=== PATIENT | male | born 1980 | race Caucasian/White ===

== ENCOUNTER 2018-03-16 02:14 | Outpatient (CLI) | payer MEDICAID | END 2018-03-16 02:15 | disposition critical access hospital (66) | LOC: EMS 02:14 | PROVIDERS: ATTEND Surgery | DX: R46.89 Other symptoms and signs involving appearance and behavior (principal); R45.1 Restlessness and agitation | CPT/HCPCS: A0425; A0429; A0999 ==

== ENCOUNTER 2018-03-16 02:29 | Emergency (ER) | payer MEDICAID ==
--- NOTE | 2018-03-16 03:44 | ED Physician Documentation ---
PD HPI MHE - Stated complaint Stated Complaint: AMS - Chief complaint Chief Complaint: MHE - History obtained from History obtained from: Patient, EMS - History of Present Illness Primary symptom: Medical clearance Timing - onset: How many weeks ago (1) Contributing factors: Other (homeless) Similar symptoms before: Has not had sx before Recently seen: Not recently seen - Additional information Additional information: 37-year-old homeless male has been observed in [place] by police over the past week to become more delusional and acting more bizarre. 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 Police felt this was a danger to himself and detained him to the emergency department. The patient refused treatment in the field and required restraint to a gurney for transport to the hospital. He has not been charged with a crime. The patient is not cooperative with exam and is in restraint in the ED for further evaluation. Review of Systems Unable to obtain: Uncooperative PD PAST MEDICAL HISTORY - Past Medical History Cardiovascular: None Respiratory: None Endocrine/Autoimmune: None GI: None : None HEENT: None Psych: Depression, Anxiety Musculoskeletal: None Derm: None - Past Surgical History Past Surgical History: No - Present Medications Home Medications: Ambulatory Orders Medication Instructions Recorded Confirmed Potassium Bicarbonate 25 meq PO DAILY #20 tablet 10/05/14 [K-Effervescent] - Allergies Allergies/Adverse Reactions: Allergies Allergy/AdvReac Type Severity Reaction Status Date / Time No Known Drug Allergies Allergy Verified 10/04/14 20:44 - Social History Does the pt smoke?: Yes Smoking Status: Current every day smoker Does the pt drink ETOH?: Yes Does the pt have substance abuse?: No - Immunizations Immunizations are current?: No - POLST Patient has POLST: No PD ED PE NORMAL - Vitals Vital signs reviewed: Yes (hypertensive mild ) - General General: No acute distress, Well developed/nourished, Other (dishoveled male who is uncooperative and restrained. 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 ) Results - Vitals Vitals: Oxygen O2 Source Room air - Labs Labs: Laboratory Tests 03/16/18 03/16/18 03/16/18 03:39 03:39 10:38 WBC 8.7 RBC 4.75 Hgb 14.5 Hct 43.0 MCV 90.7 MCH 30.6 MCHC 33.7 RDW 13.2 Plt Count 271 MPV 8.5 Neut # (Auto) 6.1 Lymph # (Auto) 1.5 [place] # (Auto) 1.1 H Eos # (Auto) 0.0 Baso # (Auto) 0.0 Absolute Nucleated RBC 0.00 Nucleated RBC % 0.0 Sodium 142 Potassium 4.2 Chloride 110 Carbon Dioxide 24 Anion Gap 8.0 BUN 16 Creatinine 1.0 Estimated GFR (MDRD) 84 L Glucose 100 Calcium 9.2 Total Bilirubin 0.5 AST 69 H ALT 60 Alkaline Phosphatase 46 Total Protein 6.3 L Albumin 3.9 Globulin 2.4 Albumin/Globulin Ratio 1.6 Lipase 35 TSH 1.26 Urine Color Urine Clarity Urine pH Ur Specific [place] Urine Protein Urine Glucose (UA) Urine Ketones Urine Occult Blood Urine Nitrite Urine Bilirubin Urine Urobilinogen Ur Leukocyte Esterase Urine RBC Urine WBC Ur Squamous Epith Cells Urine Bacteria Ur Microscopic Review Urine Culture Comments Urine Opiates Screen Ur Oxycodone Screen Urine Methadone Screen Ur Propoxyphene Screen Ur Barbiturates Screen Ur Tricyclics Screen Ur Phencyclidine Scrn Ur Amphetamine Screen U Methamphetamines Scrn U Benzodiazepines Scrn Urine Cocaine Screen U Cannabinoids Screen Ethyl Alcohol < 5.0 03/16/18 10:53 WBC RBC Hgb Hct MCV MCH MCHC RDW Plt Count MPV Neut # (Auto) Lymph # (Auto) [place] # (Auto) Eos # (Auto) Baso # (Auto) Absolute Nucleated RBC Nucleated RBC % Sodium Potassium Chloride Carbon Dioxide Anion Gap BUN Creatinine Estimated GFR (MDRD) Glucose Calcium Total Bilirubin AST ALT Alkaline Phosphatase Total Protein Albumin Globulin Albumin/Globulin Ratio Lipase TSH Urine Color YELLOW Urine Clarity SL. CLOUDY Urine pH 7.5 Ur Specific [place] 1.015 Urine Protein NEGATIVE Urine Glucose (UA) NEGATIVE Urine Ketones NEGATIVE Urine Occult Blood NEGATIVE Urine Nitrite NEGATIVE Urine Bilirubin NEGATIVE Urine Urobilinogen 1 (NORMAL) Ur Leukocyte Esterase NEGATIVE Urine RBC 0-5 Urine WBC 0-3 Ur Squamous Epith Cells NONE SEEN Urine Bacteria Few Ur Microscopic Review INDICATED Urine Culture Comments NOT INDICATED Urine Opiates Screen NEGATIVE Ur Oxycodone Screen NEGATIVE Urine Methadone Screen NEGATIVE Ur Propoxyphene Screen NEGATIVE Ur Barbiturates Screen NEGATIVE Ur Tricyclics Screen NEGATIVE Ur Phencyclidine Scrn NEGATIVE Ur Amphetamine Screen NEGATIVE U Methamphetamines Scrn NEGATIVE U Benzodiazepines Scrn NEGATIVE Urine Cocaine Screen NEGATIVE U Cannabinoids Screen POSITIVE H Ethyl Alcohol PD MEDICAL DECISION MAKING - ED course Complexity details: reviewed old records, reviewed results, re-evaluated patient , considered differential, d/w patient ED course: 37 y/o male with delusional behavior increasing over the past week observed by law enforcement is now a danger to self and he is uncooperative. He is detained for evaluation by DCR. He is evaluated and arrangements are made for transfer to [place]. - Sepsis Event Vital Signs: Oxygen O2 Source Room air Departure - Departure Disposition: [facility] Psych Hosp/Unit DC/Xfer Clinical Impression: Acute psychosis Condition: Stable Discharge Date/Time: 03/16/18 17:15
[2018-03-16 04:04] LABS: ALBUMIN 3.9 g/dL (3.2-5.5); ALBUMIN/GLOBULIN RATIO 1.6 (1.0-2.2); ALKALINE PHOSPHATASE 46 IU/L (42-121); ALT ALANINE AMINOTRANSFERASE 60 IU/L (10-60); AST ASPARTATE AMINOTRANSFERASE 69 IU/L (10-42); BILIRUBIN,TOTAL 0.5 mg/dL (0.2-1.0); BUN - BLOOD UREA NITROGEN 16 mg/dL (6-20); CALCIUM 9.2 mg/dL (8.5-10.3); CARBON DIOXIDE - CO2 24 mmol/L (21-32); CHLORIDE 110 mmol/L (101-111); GFR - MDRD 84 (>89); GLUCOSE 100 mg/dL (70-100); LIPASE 35 U/L (22-51); SODIUM 142 mmol/L (135-145); TOTAL PROTEIN 6.3 g/dL (6.7-8.2)
[2018-03-16] MEDS ORDERED: OLANZapine ODT 5 MG TABLET TL ONE (09:56)
[2018-03-16] MEDS ORDERED: KETAMINE 500 MG/10 ML VIAL IM STA (10:18)
[2018-03-16] MEDS ORDERED: OLANZapine 10 MG VIAL IM STA ×2 (10:19→14:19)
[2018-03-16 10:42] LABS: BASOPHILS % (AUTO) 0.5 %; EOSINOPHILS % (AUTO) 0.4 %; HGB - HEMOGLOBIN 14.5 g/dL (14.0-18.0); LYMPHOCYTES # (AUTO) 1.5 10^3/uL (1.5-3.5); LYMPHOCYTES % (AUTO) 17.4 %; MEAN CORPUSCULAR HEMOGLOBIN 30.6 pg (27.0-31.0); MEAN CORPUSCULAR HGB CONC 33.7 g/dL (32.0-36.0); MEAN CORPUSCULAR VOLUME 90.7 fL (80.0-94.0); MEAN PLATELET VOLUME 8.5 fL (7.4-11.4); MONOCYTES # (AUTO) 1.1 10^3/uL (0.0-1.0); MONOCYTES % (AUTO) 12.2 %; NEUTROPHILS # (AUTO) 6.1 10^3/uL (1.5-6.6); NEUTROPHILS % (AUTO) 69.5 %; PLT - PLATELET COUNT 271 10^3/uL (130-450); RED BLOOD COUNT 4.75 10^6/uL (4.70-6.10); RED CELL DISTRIBUTION WIDTH 13.2 % (12.0-15.0); WHITE BLOOD COUNT 8.7 x10^3/uL (4.8-10.8)
[2018-03-16 11:05] LABS: MUDS CUTOFF CONCENTRATIONS CUTOFF CONC BELOW:
[2018-03-16 11:08] LABS: BILIRUBIN,URINE NEGATIVE (NEGATIVE); GLUCOSE, URINE (UA) NEGATIVE (NEGATIVE); KETONES,URINE (UA) NEGATIVE (NEGATIVE); LEUKOCYTE ESTERASE, URINE NEGATIVE (NEGATIVE); NITRITE,URINE NEGATIVE (NEGATIVE); OCCULT BLOOD,URINE NEGATIVE (NEGATIVE); PH,URINE 7.5 PH (5.0-7.5); PROTEIN,URINE NEGATIVE (NEGATIVE); UROBILINOGEN,URINE 1 (NORMAL) E.U./dL (NORMAL)
[2018-03-16 11:09] LABS: CLARITY,URINE SL. CLOUDY (CLEAR)
[2018-03-16 11:17] LABS: AMPHETAMINE SCREEN,URINE NEGATIVE (NEGATIVE); BENZODIAZEPINES SCREEN, URINE NEGATIVE (NEGATIVE); COCAINE SCREEN URINE NEGATIVE (NEGATIVE); METHADONE SCREEN, URINE NEGATIVE (NEGATIVE); METHAMPHETAMINES SCREEN, URINE NEGATIVE (NEGATIVE); OPIATE SCREEN, URINE NEGATIVE (NEGATIVE); OXYCODONE SCREEN, URINE NEGATIVE (NEGATIVE); PROPOXYPHENE SCREEN, URINE NEGATIVE (NEGATIVE); TRICYCLIC ANTIDEPRESSANT,URINE NEGATIVE (NEGATIVE)
[2018-03-16 11:32] LABS: BACTERIA,URINE Few /HPF (None Seen); RBC,URINE 0-5 /HPF (0-5); SQUAMOUS EPITHELIAL CELL,UR NONE SEEN (<= Few)
[2018-03-16] MEDS ORDERED: WATER FOR INJECTION,STERILE 10 ML ONE (14:41)
[2018-03-16 17:00] VITALS: BP 115/74
== END 2018-03-16 17:15 ==
LOC: EDUNIT# → ED 02:29 → SUPCPDRO 02:29 → ED 17:15
DX: F23 Brief psychotic disorder (principal); F17.200 Nicotine dependence, unspecified, uncomplicated
CPT/HCPCS: 36415; 80053; 80306; 80320; 81001; 81003; 83690; 84443; 85025; 87086; 96372; 99284; 99285

== ENCOUNTER 2018-05-26 22:24 | Outpatient (CLI) | payer MEDICAID | END 2018-05-26 22:25 | disposition critical access hospital (66) | LOC: EMS 22:24 | PROVIDERS: ATTEND Surgery | DX: R46.89 Other symptoms and signs involving appearance and behavior (principal); R41.82 Altered mental status, unspecified | CPT/HCPCS: A0425; A0429; A0999 ==

== ENCOUNTER 2018-05-26 22:38 | Emergency (ER) | payer MEDICAID ==
[2018-05-26] MEDS ORDERED: OLANZapine 10 MG VIAL IM STA (22:43)
[2018-05-26] MEDS ORDERED: WATER FOR INJECTION,STERILE 10 ML ONE (22:44)
[2018-05-26] MEDS ORDERED: OLANZapine 10 MG VIAL IM ONE (22:44)
--- NOTE | 2018-05-26 22:45 | ED Physician Documentation ---
PD HPI MHE - Stated complaint Stated Complaint: MHE - History obtained from History obtained from: EMS, Police - History of Present Illness Primary symptom: Psychosis, Aggressive behavior, Off meds Timing - onset: Today Similar symptoms before: Work up / diagnostics, Treatment Recently seen: Not recently seen - Additional information Additional information: Patient is a 37 year old male with a history of schizophrenia who is being brought in by police for aggitation and aggressive behavior. patient was found walking out into the street and trying to walk into care. Police were called, and when they tried to detain the patient he became aggressive. patient was stunned 4 times. Patient was brought in in full restraints. Patient states that there are things implanted into his brain and that is where the voices are coming from. Review of Systems Unable to obtain: Uncooperative PD PAST MEDICAL HISTORY - Past Medical History Cardiovascular: None Respiratory: None Endocrine/Autoimmune: None GI: None : None HEENT: None Psych: Depression, Anxiety Musculoskeletal: None Derm: None - Past Surgical History Past Surgical History: No - Present Medications Home Medications: Ambulatory Orders Medication Instructions Recorded Confirmed Potassium Bicarbonate 25 meq PO DAILY #20 tablet 10/05/14 [K-Effervescent] - Allergies Allergies/Adverse Reactions: Allergies Allergy/AdvReac Type Severity Reaction Status Date / Time No Known Drug Allergies Allergy Verified 05/26/18 23:00 - Social History Does the pt smoke?: Yes Smoking Status: Current every day smoker Does the pt drink ETOH?: Yes Does the pt have substance abuse?: No - Immunizations Immunizations are current?: No - POLST Patient has POLST: No PD ED PE NORMAL - Respiratory Respiratory: No respiratory distress PD ED PE EXPANDED - General General: Alert, Disheveled, poorly kept - HEENT HEENT: Atraumatic - Eyes Eyes: PERRL - Cardiac Cardiac: Regular Rate - Respiratory Respiratory: Clear to ausultation radhika - Extremities Extremities: No: Deformity - Psych Psych: Homicidal, Combative, Pressured speech, Auditory hallucinations Results - Vitals Vitals: Vital Signs - 24 hr 05/26/18 05/27/18 05/27/18 22:56 00:14 04:04 Temperature 37.2 C 36.6 C Heart Rate 105 H 100 61 Respiratory 16 16 14 Rate Blood Pressure 163/72 H 160/75 H 135/79 H O2 Saturation 96 99 98 Oxygen O2 Source Room air - EKG (time done) 0305 Rate: Rate (enter#) (60) Rhythm: NSR [place]: Normal Intervals: Normal [place] QRS: Normal Ischemia: Normal ST segments Compare to prior EKG: Old EKG unavailable - Labs Labs: Laboratory Tests 05/26/18 05/26/18 05/26/18 11:03 11:03 23:55 WBC 7.7 RBC 5.16 Hgb 16.0 Hct 45.9 MCV 88.9 MCH 30.9 MCHC 34.8 RDW 13.2 Plt Count 227 MPV 8.4 Neut # (Auto) 5.4 Lymph # (Auto) 1.6 [place] # (Auto) 0.5 Eos # (Auto) 0.1 Baso # (Auto) 0.0 Absolute Nucleated RBC 0.01 Nucleated RBC % 0.1 Sodium 137 Potassium 3.5 Chloride 104 Carbon Dioxide 21 Anion Gap 12.0 BUN 16 Creatinine 1.1 Estimated GFR (MDRD) 75 L Glucose 139 H Calcium 9.1 Total Bilirubin 0.3 AST 30 ALT 26 Alkaline Phosphatase 47 Total Protein 7.2 Albumin 4.4 Globulin 2.8 Albumin/Globulin Ratio 1.6 Lipase 34 Urine Color Urine Clarity Urine pH Ur Specific [place] Urine Protein Urine Glucose (UA) Urine Ketones Urine Occult Blood Urine Nitrite Urine Bilirubin Urine Urobilinogen Ur Leukocyte Esterase Ur Microscopic Review Urine Culture Comments Salicylates < 6.0 Urine Opiates Screen NEGATIVE Ur Oxycodone Screen NEGATIVE Urine Methadone Screen NEGATIVE Ur Propoxyphene Screen NEGATIVE Acetaminophen < 10 L Ur Barbiturates Screen NEGATIVE Ur Tricyclics Screen NEGATIVE Ur Phencyclidine Scrn NEGATIVE Ur Amphetamine Screen NEGATIVE U Methamphetamines Scrn NEGATIVE U Benzodiazepines Scrn NEGATIVE Urine Cocaine Screen NEGATIVE U Cannabinoids Screen POSITIVE H Ethyl Alcohol < 5.0 05/26/18 23:55 WBC RBC Hgb Hct MCV MCH MCHC RDW Plt Count MPV Neut # (Auto) Lymph # (Auto) [place] # (Auto) Eos # (Auto) Baso # (Auto) Absolute Nucleated RBC Nucleated RBC % Sodium Potassium Chloride Carbon Dioxide Anion Gap BUN Creatinine Estimated GFR (MDRD) Glucose Calcium Total Bilirubin AST ALT Alkaline Phosphatase Total Protein Albumin Globulin Albumin/Globulin Ratio Lipase Urine Color YELLOW Urine Clarity CLEAR Urine pH 6.5 Ur Specific [place] 1.025 Urine Protein TRACE Urine Glucose (UA) NEGATIVE Urine Ketones NEGATIVE Urine Occult Blood NEGATIVE Urine Nitrite NEGATIVE Urine Bilirubin NEGATIVE Urine Urobilinogen 0.2 (NORMAL) Ur Leukocyte Esterase NEGATIVE Ur Microscopic Review NOT INDICATED Urine Culture Comments NOT INDICATED Salicylates Urine Opiates Screen Ur Oxycodone Screen Urine Methadone Screen Ur Propoxyphene Screen Acetaminophen Ur Barbiturates Screen Ur Tricyclics Screen Ur Phencyclidine Scrn Ur Amphetamine Screen U Methamphetamines Scrn U Benzodiazepines Scrn Urine Cocaine Screen U Cannabinoids Screen Ethyl Alcohol PD MEDICAL DECISION MAKING - ED course Complexity details: reviewed old records, reviewed results, re-evaluated patient, considered differential ED course: Patient was seen and examined at bedside. Patient was in restraints with police officers at bedside. Patient was agitated and was a risk to himself and staff and was treated with zyprexa 10mg im. labs were drawn and urine was collected. patient's labs and urine showed no significant abnormalities. Patient was medically cleared. patient was evaluated by [facility] who felt the patient needed to be detained but there were no beds available. patient was gravely disabled and was inappropriate for discharge. patient was signed over to the morning physician pending re-evaluation. - Sepsis Event Vital Signs: Vital Signs - 24 hr 05/26/18 05/27/18 05/27/18 22:56 00:14 04:04 Temperature 37.2 C 36.6 C Heart Rate 105 H 100 61 Respiratory 16 16 14 Rate Blood Pressure 163/72 H 160/75 H 135/79 H O2 Saturation 96 99 98 Oxygen O2 Source Room air Departure - Departure Clinical Impression: Acute psychosis, Schizophrenia, Gravely disabled
[2018-05-26 23:08] LABS: BASOPHILS % (AUTO) 0.6 %; EOSINOPHILS # (AUTO) 0.1 10^3/uL (0.0-0.7); EOSINOPHILS % (AUTO) 1.7 %; LYMPHOCYTES # (AUTO) 1.6 10^3/uL (1.5-3.5); LYMPHOCYTES % (AUTO) 21.3 %; MEAN CORPUSCULAR HEMOGLOBIN 30.9 pg (27.0-31.0); MEAN CORPUSCULAR HGB CONC 34.8 g/dL (32.0-36.0); MEAN CORPUSCULAR VOLUME 88.9 fL (80.0-94.0); MEAN PLATELET VOLUME 8.4 fL (7.4-11.4); MONOCYTES # (AUTO) 0.5 10^3/uL (0.0-1.0); MONOCYTES % (AUTO) 5.9 %; NEUTROPHILS # (AUTO) 5.4 10^3/uL (1.5-6.6); NEUTROPHILS % (AUTO) 70.5 %; PLT - PLATELET COUNT 227 10^3/uL (130-450); RED BLOOD COUNT 5.16 10^6/uL (4.70-6.10); RED CELL DISTRIBUTION WIDTH 13.2 % (12.0-15.0); WHITE BLOOD COUNT 7.7 x10^3/uL (4.8-10.8)
[2018-05-26 23:24] LABS: ALBUMIN 4.4 g/dL (3.2-5.5); ALBUMIN/GLOBULIN RATIO 1.6 (1.0-2.2); ALKALINE PHOSPHATASE 47 IU/L (42-121); ALT ALANINE AMINOTRANSFERASE 26 IU/L (10-60); AST ASPARTATE AMINOTRANSFERASE 30 IU/L (10-42); BILIRUBIN,TOTAL 0.3 mg/dL (0.2-1.0); BUN - BLOOD UREA NITROGEN 16 mg/dL (6-20); CALCIUM 9.1 mg/dL (8.5-10.3); CARBON DIOXIDE - CO2 21 mmol/L (21-32); CHLORIDE 104 mmol/L (101-111); CREATININE 1.1 mg/dL (0.6-1.2); GFR - MDRD 75 (>89); GLUCOSE 139 mg/dL (70-100); LIPASE 34 U/L (22-51); SALICYLATE < 6.0 mg/dL; SODIUM 137 mmol/L (135-145); TOTAL PROTEIN 7.2 g/dL (6.7-8.2)
[2018-05-26 23:26] LABS: ACETAMINOPHEN < 10 ug/mL (10-30)
[2018-05-27 00:08] LABS: MUDS CUTOFF CONCENTRATIONS CUTOFF CONC BELOW:
[2018-05-27 00:10] LABS: BILIRUBIN,URINE NEGATIVE (NEGATIVE); GLUCOSE, URINE (UA) NEGATIVE (NEGATIVE); KETONES,URINE (UA) NEGATIVE (NEGATIVE); LEUKOCYTE ESTERASE, URINE NEGATIVE (NEGATIVE); NITRITE,URINE NEGATIVE (NEGATIVE); OCCULT BLOOD,URINE NEGATIVE (NEGATIVE); PH,URINE 6.5 PH (5.0-7.5); PROTEIN,URINE TRACE mg/dL (NEGATIVE); UROBILINOGEN,URINE 0.2 (NORMAL) E.U./dL (NORMAL)
[2018-05-27 00:14] LABS: CLARITY,URINE CLEAR (CLEAR)
[2018-05-27 00:20] LABS: AMPHETAMINE SCREEN,URINE NEGATIVE (NEGATIVE); BENZODIAZEPINES SCREEN, URINE NEGATIVE (NEGATIVE); COCAINE SCREEN URINE NEGATIVE (NEGATIVE); METHADONE SCREEN, URINE NEGATIVE (NEGATIVE); METHAMPHETAMINES SCREEN, URINE NEGATIVE (NEGATIVE); OPIATE SCREEN, URINE NEGATIVE (NEGATIVE); OXYCODONE SCREEN, URINE NEGATIVE (NEGATIVE); PROPOXYPHENE SCREEN, URINE NEGATIVE (NEGATIVE); TRICYCLIC ANTIDEPRESSANT,URINE NEGATIVE (NEGATIVE)
--- NOTE | 2018-05-27 08:15 | ED Physician Documentation ---
History of Present Illness - Stated complaint Stated Complaint: MHE - Chief complaint Chief Complaint: MHE PD PAST MEDICAL HISTORY - Past Medical History Cardiovascular: None Respiratory: None Endocrine/Autoimmune: None GI: None : None HEENT: None Psych: Depression, Anxiety Musculoskeletal: None Derm: None - Past Surgical History Past Surgical History: No - Present Medications Home Medications: Ambulatory Orders Medication Instructions Recorded Confirmed Potassium Bicarbonate 25 meq PO DAILY #20 tablet 10/05/14 [K-Effervescent] - Allergies Allergies/Adverse Reactions: Allergies Allergy/AdvReac Type Severity Reaction Status Date / Time No Known Drug Allergies Allergy Verified 05/26/18 23:00 - Social History Does the pt smoke?: Yes Smoking Status: Current every day smoker Does the pt drink ETOH?: Yes Does the pt have substance abuse?: No - Immunizations Immunizations are current?: No - POLST Patient has POLST: No Results - Vitals Vitals: Vital Signs - 24 hr 05/26/18 05/27/18 05/27/18 22:56 00:14 04:04 Temperature 37.2 C 36.6 C Heart Rate 105 H 100 61 Respiratory 16 16 14 Rate Blood Pressure 163/72 H 160/75 H 135/79 H O2 Saturation 96 99 98 05/27/18 17:12 Temperature 36.9 C Heart Rate 61 Respiratory 20 Rate Blood Pressure 115/62 O2 Saturation 96 Oxygen O2 Source Room air - Labs Labs: Laboratory Tests 05/26/18 05/26/18 05/26/18 11:03 11:03 23:55 WBC 7.7 RBC 5.16 Hgb 16.0 Hct 45.9 MCV 88.9 MCH 30.9 MCHC 34.8 RDW 13.2 Plt Count 227 MPV 8.4 Neut # (Auto) 5.4 Lymph # (Auto) 1.6 [place] # (Auto) 0.5 Eos # (Auto) 0.1 Baso # (Auto) 0.0 Absolute Nucleated RBC 0.01 Nucleated RBC % 0.1 Sodium 137 Potassium 3.5 Chloride 104 Carbon Dioxide 21 Anion Gap 12.0 BUN 16 Creatinine 1.1 Estimated GFR (MDRD) 75 L Glucose 139 H Calcium 9.1 Total Bilirubin 0.3 AST 30 ALT 26 Alkaline Phosphatase 47 Total Protein 7.2 Albumin 4.4 Globulin 2.8 Albumin/Globulin Ratio 1.6 Lipase 34 Urine Color Urine Clarity Urine pH Ur Specific [place] Urine Protein Urine Glucose (UA) Urine Ketones Urine Occult Blood Urine Nitrite Urine Bilirubin Urine Urobilinogen Ur Leukocyte Esterase Ur Microscopic Review Urine Culture Comments Salicylates < 6.0 Urine Opiates Screen NEGATIVE Ur Oxycodone Screen NEGATIVE Urine Methadone Screen NEGATIVE Ur Propoxyphene Screen NEGATIVE Acetaminophen < 10 L Ur Barbiturates Screen NEGATIVE Ur Tricyclics Screen NEGATIVE Ur Phencyclidine Scrn NEGATIVE Ur Amphetamine Screen NEGATIVE U Methamphetamines Scrn NEGATIVE U Benzodiazepines Scrn NEGATIVE Urine Cocaine Screen NEGATIVE U Cannabinoids Screen POSITIVE H Ethyl Alcohol < 5.0 05/26/18 23:55 WBC RBC Hgb Hct MCV MCH MCHC RDW Plt Count MPV Neut # (Auto) Lymph # (Auto) [place] # (Auto) Eos # (Auto) Baso # (Auto) Absolute Nucleated RBC Nucleated RBC % Sodium Potassium Chloride Carbon Dioxide Anion Gap BUN Creatinine Estimated GFR (MDRD) Glucose Calcium Total Bilirubin AST ALT Alkaline Phosphatase Total Protein Albumin Globulin Albumin/Globulin Ratio Lipase Urine Color YELLOW Urine Clarity CLEAR Urine pH 6.5 Ur Specific [place] 1.025 Urine Protein TRACE Urine Glucose (UA) NEGATIVE Urine Ketones NEGATIVE Urine Occult Blood NEGATIVE Urine Nitrite NEGATIVE Urine Bilirubin NEGATIVE Urine Urobilinogen 0.2 (NORMAL) Ur Leukocyte Esterase NEGATIVE Ur Microscopic Review NOT INDICATED Urine Culture Comments NOT INDICATED Salicylates Urine Opiates Screen Ur Oxycodone Screen Urine Methadone Screen Ur Propoxyphene Screen Acetaminophen Ur Barbiturates Screen Ur Tricyclics Screen Ur Phencyclidine Scrn Ur Amphetamine Screen U Methamphetamines Scrn U Benzodiazepines Scrn Urine Cocaine Screen U Cannabinoids Screen Ethyl Alcohol - Rads (name of study) L knee Radiology: See rad report (no fx, small effusion, small STS) PD MEDICAL DECISION MAKING - ED course ED course: assumed care 8 AM per night EMP turn over - 37 male, hx schizophrenia, brought in by police and EMS for agitation and psychosis and aggressive behavior 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 - per overnight caregiver no injuries or apparent other illness seen by DCR, felt gravely disabled and in need on invol mental health care, but no inpt mental health bed to detain to, so DCR "walked away" per turnover DCR will be returning today to continue placement efforts went to see pt he is asleep but easily aroused RRR CTAB complains of L knee pain - no deformity, minimal swelling, no laxity, MSV intact still in 3/4 restraints and overnight caregiver advises to keep them on as pt is wanting to leave and is very strong and was violent last night pt seen by DCR again - still very psychotic - thinks a chip has been implanted in his ears - is talking about harming others per DCR hew was recently dced from [place] and did not follow up and so is on court order for further inpt tx - also invol detained for psychosis with statements of harming others pt angry and does not want to go and became very agitated and violent again, thankfully was still in restraints so was not able to elope, required police assistance to medicate IM DCR still unable to place pt - per DCR no facilities have a bed appropriate for a violent pt at this time so DCR "walked away" again pt is not DCR detained because there is no bed to detain [facility] to and [facility] but he is gravely disabled and a danger to self and others - and so under EMTALA is not stabilized and so cannot be dced or leave AMA will continue to board pending placement turned over to next shift - Sepsis Event Vital Signs: Vital Signs - 24 hr 05/26/18 05/27/18 05/27/18 22:56 00:14 04:04 Temperature 37.2 C 36.6 C Heart Rate 105 H 100 61 Respiratory 16 16 14 Rate Blood Pressure 163/72 H 160/75 H 135/79 H O2 Saturation 96 99 98 05/27/18 17:12 Temperature 36.9 C Heart Rate 61 Respiratory 20 Rate Blood Pressure 115/62 O2 Saturation 96 Oxygen O2 Source Room air Departure - Departure Clinical Impression: Acute psychosis, Schizophrenia, Gravely disabled
[2018-05-27] MEDS ORDERED: OLANZapine 10 MG VIAL IM ONE (12:26)
[2018-05-27] MEDS ORDERED: WATER FOR INJECTION,STERILE 10 ML ONE (12:27)
[2018-05-27] MEDS ORDERED: OLANZapine 10 MG VIAL IM STA (12:28)
[2018-05-27] MEDS ORDERED: KETAMINE 500 MG/10 ML VIAL IM STA (12:28)
--- NOTE | 2018-05-27 17:37 | XRAY Report ---
Reason: Fell on knee Procedure Date: 05/27/2018 Accession Number: [id number] / [id number] Procedure: XR - Knee 2 View LT CPT Code: FULL RESULT: EXAM: LEFT KNEE RADIOGRAPHY EXAM DATE: 05/27/2018 05:13 PM. CLINICAL HISTORY: Fell on knee. COMPARISON: None. TECHNIQUE: 3 views. FINDINGS: Bones: Normal. No fractures or bone lesions. Joints: Small knee joint effusion. Normal alignment. Soft Tissues: Mild prepatellar swelling. No radiopaque foreign bodies. IMPRESSION: 1. No fracture. 2. Normal alignment. Small knee joint effusion. 3. Mild prepatellar swelling. RADIA
--- NOTE | 2018-05-28 01:39 | ED Physician Documentation ---
ED Addendum - Addendum Addendum: 05/28/18 01:38 patient's physical restraints were removed at 21:00 on 05/27/18. Patient is cooperative but still asking to leave
--- NOTE | 2018-05-28 06:31 | ED Physician Documentation ---
History of Present Illness - Stated complaint Stated Complaint: MHE - Chief complaint Chief Complaint: MHE PD PAST MEDICAL HISTORY - Past Medical History Cardiovascular: None Respiratory: None Endocrine/Autoimmune: None GI: None : None HEENT: None Psych: Depression, Anxiety Musculoskeletal: None Derm: None - Past Surgical History Past Surgical History: No - Present Medications Home Medications: Ambulatory Orders Medication Instructions Recorded Confirmed Potassium Bicarbonate 25 meq PO DAILY #20 tablet 10/05/14 [K-Effervescent] - Allergies Allergies/Adverse Reactions: Allergies Allergy/AdvReac Type Severity Reaction Status Date / Time No Known Drug Allergies Allergy Verified 05/26/18 23:00 - Social History Does the pt smoke?: Yes Smoking Status: Current every day smoker Does the pt drink ETOH?: Yes Does the pt have substance abuse?: No - Immunizations Immunizations are current?: No - POLST Patient has POLST: No Results - Vitals Vitals: Vital Signs - 24 hr 05/27/18 17:12 Temperature 36.9 C Heart Rate 61 Respiratory 20 Rate Blood Pressure 115/62 O2 Saturation 96 Oxygen O2 Source Room air - Labs Labs: Laboratory Tests 05/26/18 05/26/18 05/26/18 11:03 11:03 23:55 WBC 7.7 RBC 5.16 Hgb 16.0 Hct 45.9 MCV 88.9 MCH 30.9 MCHC 34.8 RDW 13.2 Plt Count 227 MPV 8.4 Neut # (Auto) 5.4 Lymph # (Auto) 1.6 [place] # (Auto) 0.5 Eos # (Auto) 0.1 Baso # (Auto) 0.0 Absolute Nucleated RBC 0.01 Nucleated RBC % 0.1 Sodium 137 Potassium 3.5 Chloride 104 Carbon Dioxide 21 Anion Gap 12.0 BUN 16 Creatinine 1.1 Estimated GFR (MDRD) 75 L Glucose 139 H Calcium 9.1 Total Bilirubin 0.3 AST 30 ALT 26 Alkaline Phosphatase 47 Total Protein 7.2 Albumin 4.4 Globulin 2.8 Albumin/Globulin Ratio 1.6 Lipase 34 Urine Color Urine Clarity Urine pH Ur Specific [place] Urine Protein Urine Glucose (UA) Urine Ketones Urine Occult Blood Urine Nitrite Urine Bilirubin Urine Urobilinogen Ur Leukocyte Esterase Ur Microscopic Review Urine Culture Comments Salicylates < 6.0 Urine Opiates Screen NEGATIVE Ur Oxycodone Screen NEGATIVE Urine Methadone Screen NEGATIVE Ur Propoxyphene Screen NEGATIVE Acetaminophen < 10 L Ur Barbiturates Screen NEGATIVE Ur Tricyclics Screen NEGATIVE Ur Phencyclidine Scrn NEGATIVE Ur Amphetamine Screen NEGATIVE U Methamphetamines Scrn NEGATIVE U Benzodiazepines Scrn NEGATIVE Urine Cocaine Screen NEGATIVE U Cannabinoids Screen POSITIVE H Ethyl Alcohol < 5.0 05/26/18 23:55 WBC RBC Hgb Hct MCV MCH MCHC RDW Plt Count MPV Neut # (Auto) Lymph # (Auto) [place] # (Auto) Eos # (Auto) Baso # (Auto) Absolute Nucleated RBC Nucleated RBC % Sodium Potassium Chloride Carbon Dioxide Anion Gap BUN Creatinine Estimated GFR (MDRD) Glucose Calcium Total Bilirubin AST ALT Alkaline Phosphatase Total Protein Albumin Globulin Albumin/Globulin Ratio Lipase Urine Color YELLOW Urine Clarity CLEAR Urine pH 6.5 Ur Specific [place] 1.025 Urine Protein TRACE Urine Glucose (UA) NEGATIVE Urine Ketones NEGATIVE Urine Occult Blood NEGATIVE Urine Nitrite NEGATIVE Urine Bilirubin NEGATIVE Urine Urobilinogen 0.2 (NORMAL) Ur Leukocyte Esterase NEGATIVE Ur Microscopic Review NOT INDICATED Urine Culture Comments NOT INDICATED Salicylates Urine Opiates Screen Ur Oxycodone Screen Urine Methadone Screen Ur Propoxyphene Screen Acetaminophen Ur Barbiturates Screen Ur Tricyclics Screen Ur Phencyclidine Scrn Ur Amphetamine Screen U Methamphetamines Scrn U Benzodiazepines Scrn Urine Cocaine Screen U Cannabinoids Screen Ethyl Alcohol PD MEDICAL DECISION MAKING - ED course ED course: assumed care again 6 AM 05/28 37 male hx schozophrenia recent release from [place] non compliant with tx plan brought in for psychosis and aggressive behavior req police to taze him seen by EMP Dr Goss and medically cleared seen by DCR twice and determined to be danger to self and others and gravely disabled and also violated his court order / LRO but per DCR no facilities had appropriate beds to accept pt 2/2 violent behavior so DCR "walked away" twice so far [facility] states might accept pt if out of restraints for 12 hr so he has been medicated and out of restraints all night awaiting DCR / SW to continue to place pt went to see pt he is sleeping I examined him yesterday and so have other EMPS do not want to provoke him as going back into restraints will make him diff to place so did not awaken him 8 AM pt awake ambulated to bathroom on his own I spoke to him - calm and cooperative, req breakfast and some of his personal belongings 9 AM pt has been out of restraints 12 hr nurse Marti called and spoke to DCR and advises me that DCR would not be coming in until afternoon because she does not think any beds will be available until after court 1030 DCR arrived 1300 pt placed at [facility] working on EMS trasnport - Sepsis Event Vital Signs: Vital Signs - 24 hr 05/27/18 17:12 Temperature 36.9 C Heart Rate 61 Respiratory 20 Rate Blood Pressure 115/62 O2 Saturation 96 Oxygen O2 Source Room air Departure - Departure Disposition: [facility] Psych Hosp/Unit DC/Xfer Clinical Impression: Acute psychosis, Schizophrenia, Gravely disabled
[2018-05-28] MEDS ORDERED: OLANZapine ODT 5 MG TABLET TL ONE (10:54)
[2018-05-28] MEDS ORDERED: LORazepam 0.5 MG TABLET PO STA ×2 (10:55→17:44)
[2018-05-28 17:44] VITALS: BP 125/68
== END 2018-05-28 18:14 ==
LOC: EDUNIT# → ED 22:38
DX: Z04.6 Encounter for general psychiatric examination, requested by authority (principal); F23 Brief psychotic disorder; R45.850 Homicidal ideations; M25.462 Effusion, left knee; T75.4XXA Electrocution, initial encounter; F41.9 Anxiety disorder, unspecified; F32.9 Major depressive disorder, single episode, unspecified; F17.200 Nicotine dependence, unspecified, uncomplicated; Z78.1 Physical restraint status; Z75.1 Person awaiting admission to adequate facility elsewhere; Z76.4 Other boarder to healthcare facility; Z91.19 Patient's noncompliance with other medical treatment and regimen
CPT/HCPCS: 36415; 73560; 80053; 80306; 80307; 80320; 80329; 81003; 83690; 84443; 85025; 93005; 99285; A9270; 81001; 87086

== ENCOUNTER 2019-01-22 20:30 | Emergency (ER) | payer SELFPAY ==
--- NOTE | 2019-01-22 22:11 | ED Physician Documentation ---
History of Present Illness - Stated complaint Stated Complaint: MHE - Chief complaint Chief Complaint: MHE - History obtained from History obtained from: Patient - History of Present Illness Timing: Unknown Pain level max: 5 Pain level now: 5 Severity Comments: moderate Quality: lumps in his head and on his mouth Radiates to: none Improved by: nothing Worsened by: nothing Associated symptoms: patient unable to describe - Additonal information Additional information: Limited history due to hx of mental illness. Pt however denies substance use, denies intention to harm self or others. Review of Systems Ten Systems: 10 systems reviewed and negative Constitutional: denies: Fever Cardiac: denies: Chest pain / pressure GI: denies: Abdominal Pain Neurologic: denies: Headache, Head injury Psychiatric: reports: Delusions, Anxiety. denies: Suicidal, Homicidal PD PAST MEDICAL HISTORY - Past Medical History Past Medical History: Yes Cardiovascular: None Respiratory: None Endocrine/Autoimmune: None GI: None : None HEENT: None Psych: Depression, Anxiety Musculoskeletal: None Derm: None - Past Surgical History Past Surgical History: No - Present Medications Home Medications: Ambulatory Orders Medication Instructions Recorded Confirmed No Known Home Medications 01/22/19 01/22/19 - Allergies Allergies/Adverse Reactions: Allergies Allergy/AdvReac Type Severity Reaction Status Date / Time No Known Drug Allergies Allergy Verified 01/22/19 20:47 - Social History Does the pt smoke?: Yes Smoking Status: Current every day smoker Does the pt drink ETOH?: Yes Does the pt have substance abuse?: No - Immunizations Immunizations are current?: No - POLST Patient has POLST: No PD ED PE NORMAL - Vitals Vital signs reviewed: Yes - General General: No acute distress, Other (unkempt) - HEENT HEENT: Atraumatic, PERRL, Other (no head trauma, no tenderness) - Neck Neck: Supple, no meningeal sign - Cardiac Cardiac: RRR - Respiratory Respiratory: No respiratory distress - Abdomen Abdomen: Soft, Non tender, Non distended - Male Male : Deferred - Rectal Rectal: Deferred - Derm Derm: Normal color, Warm and dry - Extremities Extremities: No deformity, Normal ROM s pain - Neuro Neuro: Alert and oriented X 3, radiology aide 2-12 intact, No motor deficit, No sensory deficit, Normal speech, Other (normal gait and coordination) Eye Opening: Spontaneous Motor: Obeys Commands Verbal: Oriented GCS Score: 15 - Psych Psych: Other (delusions present about lumps in mouth and objects and insects inside his head) Results - Vitals Vitals: Vital Signs - 24 hr 01/22/19 01/22/19 20:35 22:17 Temperature 36.4 C L 36.4 C L Heart Rate 92 88 Respiratory 16 16 Rate Blood Pressure 138/118 H 132/76 H O2 Saturation 97 99 Oxygen O2 Source Room air PD MEDICAL DECISION MAKING - ED course Complexity details: reviewed old records, re-evaluated patient, considered differential, d/w patient ED course: 38 y/o M with hx of psychiatric disease with c/o lumps in mouth and things in his head. No obvious lesions in mouth. Normal gait and neuro exam. Pt offered mental health evaluation. He declined. He is not suicidal or homicial. He does not appear to be a danger to himself or anyone else at this time despite his delusions. Advised pt that these appear to be delusions as there is nothing in his mouth and his neurologic examination is normal. He will be discharged as he is stable and refusing further MHE. Departure - Departure Disposition: 01 Home, Self Care Clinical Impression: Psychiatric symptoms Condition: Stable Instructions: ED Stress React Comments: You have no evidence of any lesions in your mouth. Your brain examination here was negative. Your symptoms are likely due to untreated mental illness however you refused mental health evaluation here. You should follow up with your regular doctor or psychiatrist. Discharge Date/Time: 01/22/19 22:38
[2019-01-22 22:19] VITALS: BP 132/76
== END 2019-01-22 22:38 | disposition home or self-care (01) ==
LOC: ED 20:30
DX: F22 Delusional disorders (principal); F41.9 Anxiety disorder, unspecified; F17.200 Nicotine dependence, unspecified, uncomplicated
CPT/HCPCS: 99283

== ENCOUNTER 2020-06-14 00:26 | Outpatient (CLI) | payer OTHER | END 2020-06-14 00:27 | disposition critical access hospital (66) | LOC: EMS 00:26 | PROVIDERS: ATTEND Surgery | DX: Z02.89 Encounter for other administrative examinations (principal) | CPT/HCPCS: A0425; A0429 ==

== ENCOUNTER 2020-06-14 00:28 | Emergency (ER) | payer OTHER ==
--- NOTE | 2020-06-14 00:20 | ED Physician Documentation ---
History of Present Illness - Stated complaint Stated Complaint: FIT FOR CONFINEMENT - History obtained from History obtained from: EMS, Police - Additonal information Additional information: the patient is a 39 y/o m brought in by ambulance and law enforcement for medical clearance for incarceration. the patient is refusing to answer any questions. EMS reports no signs of trauma or abnormal vitals and a BG of 103. Patient follows commands but does not answer questions, able to move himself from ambulance gurney to hospital bed without complications. Review of Systems Unable to obtain: Uncooperative PD PAST MEDICAL HISTORY - Present Medications Home Medications: Ambulatory Orders Medication Instructions Recorded Confirmed No Known Home Medications 01/22/19 01/22/19 - Allergies Allergies/Adverse Reactions: Allergies Allergy/AdvReac Type Severity Reaction Status Date / Time No Known Drug Allergies Allergy Verified 01/22/19 20:47 PD ED PE NORMAL - Vitals Vital signs reviewed: Yes - General General: No acute distress, Well developed/nourished, Other (awake, alert, refusing to answer questions, follows commands.) - HEENT HEENT: Atraumatic, PERRL, EOMI, Ears normal, Moist mucous membranes, Pharynx benign, Dentition benign - Neck Neck: Supple, no meningeal sign, No JVD - Cardiac Cardiac: RRR, No murmur, Strong equal pulses - Respiratory Respiratory: No respiratory distress, Clear bilaterally - Abdomen Abdomen: Normal bowel sounds, Soft, Non tender, Non distended, No organomegaly - Rectal Rectal: Other (male and female nurse in exam room, good rectal tone, no fb, no blood, no trauma.) - Back Back: No CVA TTP, No spinal TTP - Derm Derm: Normal color, Warm and dry, No rash - Extremities Extremities: No deformity, No tenderness to palpate, Normal ROM s pain, No edema, No calf tenderness / cord - Neuro Neuro: crossbow maker 2-12 intact, No motor deficit, No sensory deficit, Other (follows commands refusing to answer questions, reflexes 2+ and symettric in b/l ue/le, no clonus, sensation intact throughout, no motor deficits. ) - Psych Psych: Normal mood, Normal affect Results - Vitals Vitals: Vital Signs - 24 hr 06/14/20 06/14/20 00:36 00:39 Temperature 37.6 C H Heart Rate 86 Respiratory 16 Rate Blood Pressure 149/96 H O2 Saturation 99 100 Oxygen O2 Source Room air PD MEDICAL DECISION MAKING - ED course ED course: 39 y/o m brought in by ems and law enforcement for medical clearance for incarceration. patient is medically cleared. patient is afebrile. no signs of trauma, BG 103 per EMS. repeat BG is 120's in ED. Departure - Departure Disposition: Home, Self Care Clinical Impression: Medical clearance for incarceration Condition: Stable Follow-Up: your, doctor [Other] Comments: You have been medically cleared for incarceration. Follow up with your medical provider in [facility] as needed.
[2020-06-14 00:49] VITALS: BP 133/88
== END 2020-06-14 00:48 | disposition home or self-care (01) ==
LOC: EDUNIT# → ED 00:28
DX: Z02.89 Encounter for other administrative examinations (principal)
CPT/HCPCS: 99281; 99283